=== PATIENT | male | born 2000 | race Caucasian/White ===

== ENCOUNTER 2021-10-20 21:13 | Emergency (ER) | payer BC ==
[~2021-10-20] VITALS: Ht 167.6 cm; Wt 77.1 kg
[2021-10-21] MEDS ORDERED: IBUP-1955 PO (00:25)
--- NOTE | 2021-10-21 00:30 | NUR ---
Patient discharged to home in stable condition. Written and verbal after care instructions given. Patient verbalizes understanding of instructions. Stressed follow up or return to ER for worsening s/s. Steady gait, crunches training acknowledged. Picked up by father.
[2021-10-21 00:32] VITALS: BP 132/69
== END 2021-10-21 00:32 | disposition home or self-care (01) ==
LOC: ER 21:18
DX: S93.601A Unspecified sprain of right foot, initial encounter (principal); V98.8XXA Other specified transport accidents, initial encounter; Y92.89 Other specified places as the place of occurrence of the external cause
CPT/HCPCS: 73630; A4663